=== PATIENT | female | born 1970 | race African-American/Black ===

== ENCOUNTER 2023-12-07 08:24 | Emergency (ER) | payer MEDICAID ==
[~2023-12-07] VITALS: Ht 175.3 cm; Wt 141.7 kg
[2023-12-07 09:30] VITALS: BP 156/84; PULSE 104; RESP 18; TEMP 97.8; O2SAT 96
[2023-12-07] MEDS: KETOROLAC TROMETH 30 MG/ML 1ML VIAL IM ONE (10:01)
[2023-12-07] MEDS: methylPREDNISolone SOD SUCC 125 MG/2 ML VL IM ONE (10:02)
[2023-12-07] MEDS ORDERED: IBUP1TAB5 PO (10:29)
[2023-12-07] MEDS ORDERED: PRED20TA2 PO (10:29)
== END 2023-12-07 10:45 | disposition home or self-care (01) ==
LOC: ER 08:24
DX: M25.552 Pain in left hip (principal); I10 Essential (primary) hypertension; K21.9 Gastro-esophageal reflux disease without esophagitis; Z88.6 Allergy status to analgesic agent
CPT/HCPCS: 73502; 96372; 99284; J1885; J2930